=== PATIENT | female | born 1985 | race Asian ===

== ENCOUNTER 2017-10-13 16:03 | Outpatient (CLI) | payer OTHER | END 2017-10-13 16:04 | disposition home or self-care (01) | LOC: LAB.R 16:03 | PROVIDERS: ATTEND Obstetrics & Gynecology | DX: Z11.3 Encounter for screening for infections with a predominantly sexual mode of transmission (principal) | CPT/HCPCS: 87491; 87591 ==

== ENCOUNTER 2017-10-20 12:33 | Outpatient (CLI) | payer OTHER ==
--- NOTE | 2017-10-20 17:36 | Ultrasound Report ---
OB ULTRASOUND: 10/20/2017 CLINICAL INDICATION: Dating, positive test. TECHNIQUE: Real-time scanning was performed with sales representative advertising static images obtained. LAST MENSTRUAL PERIOD: 07/05/2017 Clinical Age: 15 weeks 2 days US Age: 14 weeks 2 days EFW Hadlock: 91 grams EFW% Hadlock: -- Heart Rate: 152 bpm EDC: 04/11/2018 US EDC: 04/18/2018 BPD Hadlock: 14 weeks 5 days; Mean mm 27 HC Hadlock: 14 weeks 4 days; Mean mm 99 AC Hadlock: 14 weeks 1 day; Mean mm 77 FL Hadlock: 14 weeks 0 days; Mean mm 14 Presentation: variable Placental Location: anterior Cervical Length: TA 3.3 cm Amniotic Fluid: subjectively normal. FINDINGS: There is a single viable intrauterine gestation, in variable position. heart rate is 152 BPM. The placenta is anterior. Amniotic fluid volume is subjectively normal. The gestational sac appears unremarkable. By size, the fetus measures 14 weeks 2 days (15 weeks 2 days by LMP). Limited visualized anatomy is unremarkable. No free fluid or adnexal mass is identified. IMPRESSION: SINGLE VIABLE INTRAUTERINE GESTATION, MEASURING 14 WEEKS 2 DAYS BY SIZE. THIS IS IN KEEPING WITH LMP DATING OF 15 WEEKS 2 DAYS. TD: 10/20/2017 15:57 [facility]
== END 2017-10-20 12:34 | disposition home or self-care (01) ==
LOC: DI 12:33
PROVIDERS: ATTEND Obstetrics & Gynecology
DX: Z32.01 Encounter for pregnancy test, result positive (principal)
CPT/HCPCS: 76805

== ENCOUNTER 2017-12-02 07:41 | Outpatient (CLI) | payer OTHER ==
--- NOTE | 2017-12-04 13:14 | Ultrasound Report ---
OB ULTRASOUND: 12/02/2017 CLINICAL INDICATION: anatomy. COMPARISON: 10/20/2017. TECHNIQUE: Real-time scanning was performed with hr representative static images obtained. LAST MENSTRUAL PERIOD: 07/06/2017 Clinical Age: 21 weeks 2 days US Age: 20 weeks 3 days EFW Hadlock: 358 grams EFW% Hadlock: -- Heart Rate: 147 bpm EDC: 04/12/2018 US EDC: 04/18/2018 BPD Hadlock: 20 weeks 3 days; Mean mm 47 HC Hadlock: 20 weeks 1 day; Mean mm 176 AC Hadlock: 21 weeks 0 days; Mean mm 158 FL Hadlock: 20 weeks 0 days; Mean mm 32 Presentation: variable Placental Location: anterior Cervical Length: TA 2.9 cm Amniotic Fluid: MAKEDA 13.60 cm; subjectively normal; MVP 4.6 cm FINDINGS There is a single viable intrauterine gestation, in variable presentation. heart rate is 147 BPM. The placenta is anterior, without evidence of previa. Amniotic fluid volume is subjectively normal, with the deepest pocket of 4.6 cm. By size, the fetus measures 20 weeks 3 days (21 weeks 2 days by stated dating). ANATOMY The following anatomic structures were visualized and appear normal: The intracranial contents, including the ventricles and posterior fossa; the lips and orbits; the spine; the heart, including 4 chamber view and outflow tracts, and diaphragm; the abdominal contents, including the stomach, the bilateral kidneys, and urinary bladder, as well as a normal 3-vessel cord insertion; 4 limbs. No free fluid or adnexal lesion is appreciated. IMPRESSION: SINGLE VIABLE INTRAUTERINE GESTATION, WITH SIZE IN KEEPING WITH STATED DATING. NORMAL ANATOMIC SURVEY. TD: 12/02/2017 10:19 MTDD
== END 2017-12-02 07:42 | disposition home or self-care (01) ==
LOC: DI 07:41
PROVIDERS: ATTEND Obstetrics & Gynecology
DX: Z36.9 Encounter for antenatal screening, unspecified (principal)
CPT/HCPCS: 76811

== ENCOUNTER 2017-12-09 15:15 | Outpatient (CLI) | payer OTHER ==
[2017-12-09 15:42] LABS: BILIRUBIN,URINE NEGATIVE (NEGATIVE); GLUCOSE, URINE (UA) NEGATIVE (NEGATIVE); KETONES,URINE (UA) NEGATIVE (NEGATIVE); LEUKOCYTE ESTERASE, URINE SMALL (NEGATIVE); NITRITE,URINE NEGATIVE (NEGATIVE); OCCULT BLOOD,URINE NEGATIVE (NEGATIVE); PROTEIN,URINE NEGATIVE (NEGATIVE); UROBILINOGEN,URINE 0.2 (NORMAL) E.U./dL (NORMAL)
[2017-12-09 15:55] LABS: BASOPHILS % (AUTO) 0.3 %; EOSINOPHILS # (AUTO) 0.3 10^3/uL (0.0-0.7); EOSINOPHILS % (AUTO) 3.4 %; LYMPHOCYTES # (AUTO) 1.3 10^3/uL (1.5-3.5); LYMPHOCYTES % (AUTO) 13.6 %; MEAN CORPUSCULAR HEMOGLOBIN 30.8 pg (27.0-31.0); MEAN CORPUSCULAR HGB CONC 34.5 g/dL (32.0-36.0); MEAN CORPUSCULAR VOLUME 89.2 fL (81.0-99.0); MEAN PLATELET VOLUME 6.3 fL (7.9-10.8); MONOCYTES # (AUTO) 0.6 10^3/uL (0.0-1.0); MONOCYTES % (AUTO) 6.5 %; NEUTROPHILS # (AUTO) 7.5 10^3/uL (1.5-6.6); NEUTROPHILS % (AUTO) 76.2 %; PLT - PLATELET COUNT 358 10^3/uL (130-450); RED BLOOD COUNT 3.59 10^6/uL (4.20-5.40); RED CELL DISTRIBUTION WIDTH 12.8 % (12.0-15.0); WHITE BLOOD COUNT 9.8 x10^3/uL (4.8-10.8)
[2017-12-09 15:57] LABS: CLARITY,URINE CLEAR (CLEAR)
[2017-12-09 15:58] LABS: AMORPHOUS SEDIMENT,UR Few /LPF; BACTERIA,URINE Few /HPF (None Seen); RBC,URINE None Seen /HPF (0-5); SQUAMOUS EPITHELIAL CELL,UR MANY Squamous (<= Few)
[2017-12-10 12:33] LABS: HIV AG/AB 4TH GEN NON-REACTIVE (NON-REACTIVE)
[2017-12-10 13:53] LABS: HEPATITIS B SURFACE ANTIGEN NON-REACTIVE (NON-REACTIVE)
[2017-12-10 14:01] LABS: HEPATITIS C ANTIBODY NON-REACTIVE (NON-REACTIVE)
== END 2017-12-09 15:16 | disposition home or self-care (01) ==
LOC: LAB 15:15
PROVIDERS: ATTEND Obstetrics & Gynecology
DX: Z36.9 Encounter for antenatal screening, unspecified (principal)
CPT/HCPCS: 36415; 81001; 81599; 85025; 86592; 86762; 86803; 86850; 86900; 86901; 87340; 87389

== ENCOUNTER 2017-12-29 13:04 | Outpatient (CLI) | payer OTHER ==
--- NOTE | 2017-12-29 14:11 | Ultrasound Report ---
Procedure Date: 12/29/2017 Accession Number: [id number] / [id number] Procedure: US - OB F/U or Repeat CPT Code: FULL RESULT: EXAM: OB F/U or Repeat DATE: 12/29/2017 1:39 PM CLINICAL HISTORY: ENCOUNTER FOR OTHER SCREENING,FOLLOW UP. Check cervical length. TECHNIQUE: Real-time scanning was performed with marketing development representative static images obtained. COMPARISON: 12/02/2017 Presentation: Variable Placental Location: Anterior Cervical Length: 3.7 cm Amniotic Fluid: MAKEDA 19.0 cm; MVP 6.1 cm FINDINGS: There is a single viable intrauterine gestation, with heart rate 152 BPM. The placenta is anterior, without evidence of previa. The cervix is closed, and measures 3.7 cm. IMPRESSION: Unremarkable cervix. Single viable intrauterine gestation.
== END 2017-12-29 13:05 | disposition home or self-care (01) ==
LOC: DI 13:04
PROVIDERS: ATTEND Obstetrics & Gynecology
DX: Z36.2 Encounter for other antenatal screening follow-up (principal)
CPT/HCPCS: 76816

== ENCOUNTER 2018-02-09 14:51 | Outpatient (CLI) | payer OTHER | END 2018-02-09 14:52 | disposition home or self-care (01) | LOC: LAB 14:51 | PROVIDERS: ATTEND Obstetrics & Gynecology | DX: Z36.9 Encounter for antenatal screening, unspecified (principal) | CPT/HCPCS: 36415; 82950; 85018; 86850 ==

== ENCOUNTER 2018-03-24 15:27 | Outpatient (CLI) | payer OTHER | END 2018-03-24 15:28 | disposition home or self-care (01) | LOC: LAB.R 15:27 | PROVIDERS: ATTEND Obstetrics & Gynecology | DX: Z36.89 Encounter for other specified antenatal screening (principal) | CPT/HCPCS: 87797 ==

== ENCOUNTER 2018-04-12 15:43 | Outpatient (CLI) | payer OTHER ==
[2018-04-12 15:58] VITALS: BP 130/83
--- NOTE | 2018-04-12 16:14 | PROVIDER PROGRESS NOTE ---
Subjective - Prog Note Date Prog Note Date: 04/12/18 Prog Note Time: 16:15 - Subjective Subjective: Mrs. Nevarez is a 32-year-old primigravida at 39 weeks 1 day gestation who suspects leaking membranes without contractions. She has no fevers chills or UTI symptoms. There are no signs or symptoms of preeclampsia. Objective - Vital Signs/Intake & Output Vital Signs: Vital Signs x48h Temp Pulse Resp BP Pulse Ox 04/12/18 15:56 98.6 F 89 18 130/83 H 99 Exam - Exam Vital Signs: Vital Signs (72 hours) 04/12/18 15:56 Temperature 98.6 F Heart Rate [ 89 Apical] Respiratory 18 Rate Blood Pressure 130/83 H [Left Brachial artery] O2 Saturation 99 General: Alert, Oriented x3, No acute distress HEENT: Mucous membr. moist/pink Abdomen: Soft, No tenderness, Other (Uterus:Vertex presentation, flaccid, no contractions palpable, cervix 1 cm 50% effaced far posterior 0 station) Assessment/Plan - Assessment/Plan Assessment: Patient is probably in the prodrome of labor. There is no physical evidence of leaking membranes. ROM plus inconclusive due to blood on sample. Patient desires no intervention and would like to rest at home. Plan: Patient released to home with instructions. She will return tomorrow for her regular obstetrics check if labor does not ensue in the meantime.
== END 2018-04-12 16:59 | disposition home or self-care (01) ==
LOC: WFO 15:43 → FBP 15:45 → WFO 16:59
PROVIDERS: ATTEND Obstetrics & Gynecology
DX: Z34.03 Encounter for supervision of normal first pregnancy, third trimester (principal)
CPT/HCPCS: 84112; 99213

== ENCOUNTER 2018-04-13 09:32 | Inpatient (IN) | payer OTHER ==
[2018-04-13 11:50] LABS: RUPTURE OF MEMBRANES PLUS POSITIVE (NEGATIVE)
[2018-04-13] MEDS ORDERED: SODIUM CHLORIDE FLUSH 0.9% 10 ML SYRINGE ONE (17:35)
[2018-04-13] MEDS ORDERED: SODIUM CHLORIDE FLUSH 0.9% 10 ML SYRINGE IVP PRN (18:04)
--- NOTE | 2018-04-13 18:09 | PROVIDER PROGRESS NOTE ---
Labor Progress Note - Uterine Monitoring Uterine Monitoring Mode: positive: External toco Contraction Frequency (min/apart): q3 min Contraction Intensity: positive: Moderate to strong Uterine Resting Tone: positive: Soft - Monitoring Monitor Mode: positive: External ultrasound Heart Rate Variability: positive: Moderate (6-25 bmp) Accelerations: positive: Present, 15x15 Decelerations: positive: None Strip Review: positive: Category I - Vaginal Exam Dilation (in cm): 6 Effacement (%): 80% Station: 0 Cervical Position: Midposition - Labor Progress Note Labor Progress Note/Additional Text: ROM Clear Nonfoul
[2018-04-13 18:20] LABS: BASOPHILS # (AUTO) 0.1 10^3/uL (0.0-0.1); BASOPHILS % (AUTO) 0.8 %; EOSINOPHILS # (AUTO) 0.1 10^3/uL (0.0-0.7); EOSINOPHILS % (AUTO) 0.4 %; LYMPHOCYTES # (AUTO) 1.5 10^3/uL (1.5-3.5); LYMPHOCYTES % (AUTO) 10.7 %; MEAN CORPUSCULAR HEMOGLOBIN 30.5 pg (27.0-31.0); MEAN CORPUSCULAR HGB CONC 34.6 g/dL (32.0-36.0); MEAN CORPUSCULAR VOLUME 88.3 fL (81.0-99.0); MEAN PLATELET VOLUME 7.7 fL (7.9-10.8); MONOCYTES # (AUTO) 0.9 10^3/uL (0.0-1.0); NEUTROPHILS # (AUTO) 11.8 10^3/uL (1.5-6.6); NEUTROPHILS % (AUTO) 82.1 %; PLT - PLATELET COUNT 303 10^3/uL (130-450); RED BLOOD COUNT 3.92 10^6/uL (4.20-5.40); RED CELL DISTRIBUTION WIDTH 13.4 % (12.0-15.0); WHITE BLOOD COUNT 14.4 x10^3/uL (4.8-10.8)
--- NOTE | 2018-04-13 18:23 | HISTORY & PHYSICAL EXAMINATION ---
Admit History - Visit Reason Visit Reason: Contractions, Membranes rupture - : 1 Parity: 0 Premature: 0 Ectopic: 0 : 0 Care: positive: Other ([facility]) Risk/History: positive: None Complications This : positive: None Smoking Status: Never smoker - Mother's Labs Mother's Blood Type: positive: A Mother's RH: positive: Positive GBS: positive: Group B Step Negative Rubella Status: positive: Immune - Other Maternal History Other Maternal History: Pt seen last tonight in prodrome of labor. 1 cm, 50%, -1 and posterior. Pt sent home to rest. At 0400 leakage of nonfoul fluid w sm amount of blood. 0800, q 10 min painful contraction progressing to q 3 min mod to strong. ROM+ equivocable. 1700 exam + clear fluid w bloody show. Pelvis w andriod features and borderline. EFW 7lbs Meds/Allgy - Home Medications Home Medications: Ambulatory Orders Medication Instructions Recorded Confirmed Cyclobenzaprine [Flexeril] 10 mg PO TID PRN #20 tablet 02/27/15 HYDROcod/ACETAM 5/325 [[place] 5/325] 1 ea PO Q6H PRN #15 tablet 02/27/15 Ibuprofen [Motrin] 400 mg PO Q6H PRN #30 tablet 02/27/15 - Allergies Allergies/Adverse Reactions: Allergies Allergy/AdvReac Type Severity Reaction Status Date / Time No Known Drug Allergies Allergy Verified 02/27/15 10:17 Physical - Abdominal Exam Vital Signs: Temp Pulse Resp BP Pulse Ox 98.2 F 86 17 135/91 H 99 04/13/18 14:35 04/13/18 14:35 04/13/18 14:35 04/13/18 14:36 04/13/18 14:35 Exam - Exam Vital Signs: Vital Signs (72 hours) 04/13/18 04/13/18 04/13/18 09:54 09:55 12:30 Temperature 98.4 F 98.4 F 98.6 F Heart Rate [ 71 71 74 Monitoring electrodes] Respiratory 16 16 17 Rate Blood Pressure 128/82 H 128/82 H [Left Brachial artery] Blood Pressure 137/78 H [Right Brachial artery] O2 Saturation 100 100 99 04/13/18 04/13/18 14:35 14:36 Temperature 98.2 F Heart Rate [ 86 Monitoring electrodes] Respiratory 17 Rate Blood Pressure [Left Brachial artery] Blood Pressure 129/90 H 135/91 H [Right Brachial artery] O2 Saturation 99 General: Alert, Mild distress HEENT: Atraumatic, EOMI, Mucous membr. moist/pink Lungs: Clear to auscultation, Normal air movement Cardiovascular: Regular rate, Normal S1, Normal S2, No murmurs Abdomen: Normal bowel sounds, No tenderness, No hepatospenomegaly, Other (6 cm, 80%, +ROM 0 Stat q 3 min mod contraction; Cat 1 FHT tracing) Extremities: No clubbing, No edema Skin: No rashes Neurological: Normal speech, Strength at 5/5 X4 ext, Normal tone, Reflexes 2+ Psych/Mental Status: Mental status NL Assessment/Plan - Assessment/Plan Assessment: Term in Labor. Active Phase. Cat 1 tracing
[2018-04-13] MEDS ORDERED: OXYTOCIN/SODIUM CHLORIDE 500 ML IV ONE (18:30)
[2018-04-13] MEDS ORDERED: MINERAL OIL LIGHT 10 ML MC ONE (18:40)
[2018-04-13] MEDS ORDERED: LIDOCAINE 1% 50 ML MDV ONE (18:59)
[2018-04-13] MEDS ORDERED: LACTATED RINGERS 1,000 ML IV SCH ×2 (19:00→21:00)
[2018-04-13] MEDS ORDERED: diphenhydrAMINE 25 MG CAPSULE PO PRN (20:17)
[2018-04-13] MEDS ORDERED: OXYTOCIN/SODIUM CHLORIDE 250 ML IV ONE (20:17)
[2018-04-13] MEDS ORDERED: ONDANSETRON 4 MG/2 ML VIAL IVP PRN (20:17)
[2018-04-13] MEDS ORDERED: HYDROCORTISONE/PRAMOXINE 10 GM PR PRN (20:17)
[2018-04-13] MEDS ORDERED: WITCH HAZEL/GLYCERIN 1 EACH MED..PAD TOP PRN (20:17)
--- NOTE | 2018-04-13 20:23 | DELIVERY NOTE ---
Delivery Note - Labor Labor: positive: Spontaneous - Delivery Method Delivery Method: positive: Spontaneous vaginal delivery - Presentation Presentation: positive: Vertex, Compound (Left arm) - Nuchal Cord Nuchal Cord: positive: Present (X1, somewhat loose) - Anesthetic Anesthetic Type: Anesthetic: positive: Lidocaine - 1% plain Volume: positive: Other (20 cc) - Amniotic Fluid Description Amniotic Fluid Description: positive: Clear - Episiotomy Type Episiotomy Type: positive: None - Laceration Laceration: positive: 2nd degree (Shallow second-degree laceration in the midline without any extension) - Suture Suture Type: positive: Vicryl Suture Size: positive: 2-0 - Delivery Outcome Delivery Outcome: positive: Livebirth - : positive: Placed in direct skin contact with mother, Other (Delayed cord clamping) [place] sex: positive: Female - Cord Cord: positive: 3 vessels - Placenta Placenta: positive: Intact, Spontaneous, Other (Grade 2 placenta) - Estimated Blood Loss Estimated Blood Loss (in cc): 300 - Post Delivery Events Post Delivery Events: positive: No post delivery events - Delivery Comments (Free Text/Narrative) Delivery Comments (Free Text/Narrative): Patient smoothly progressed to the second stage of labor and was noted to be complete around 1915 hrs. At that time she was 10 cm +2 station and turning from ROT to OA. Patient pushed with excellent effort and smoothly brought the head to the perineum. Push & stretch method along with mineral oil was used to facilitate . Head atraumatically crowned and shoulders were delivered without difficulty. was placed on mother's abdomen. Mother baby and father all bonded well. When the cord ceased pulsations, it was doubly clamped and transected. Cord blood sample was taken. Estimated blood loss 300 weight = 7 lbs 3oz Apgars 8/9
[2018-04-14] MEDS: IBUPROFEN 600 MG TABLET PO SCH ×3 (00:09→16:30)
[2018-04-14] MEDS: ACETAMINOPHEN 325 MG TABLET PO PRN ×4 (00:45→16:31)
[2018-04-14] MEDS ORDERED: SODIUM CHLORIDE FLUSH 0.9% 10 ML SYRINGE IVP SCH (01:00)
[2018-04-14 05:52] LABS: BASOPHILS # (AUTO) 0.1 10^3/uL (0.0-0.1); BASOPHILS % (AUTO) 0.4 %; EOSINOPHILS % (AUTO) 0.2 %; HGB - HEMOGLOBIN 9.8 g/dL (12.0-16.0); LYMPHOCYTES # (AUTO) 1.6 10^3/uL (1.5-3.5); LYMPHOCYTES % (AUTO) 10.2 %; MEAN CORPUSCULAR HEMOGLOBIN 31.6 pg (27.0-31.0); MEAN CORPUSCULAR HGB CONC 36.2 g/dL (32.0-36.0); MEAN CORPUSCULAR VOLUME 87.2 fL (81.0-99.0); MEAN PLATELET VOLUME 7.1 fL (7.9-10.8); MONOCYTES % (AUTO) 6.6 %; NEUTROPHILS # (AUTO) 12.6 10^3/uL (1.5-6.6); NEUTROPHILS % (AUTO) 82.6 %; PLT - PLATELET COUNT 245 10^3/uL (130-450); RED BLOOD COUNT 3.09 10^6/uL (4.20-5.40); RED CELL DISTRIBUTION WIDTH 13.3 % (12.0-15.0); WHITE BLOOD COUNT 15.3 x10^3/uL (4.8-10.8)
[2018-04-15] MEDS: IBUPROFEN 600 MG TABLET PO SCH ×2 (03:51→13:47)
--- NOTE | 2018-04-15 12:04 | PROVIDER PROGRESS NOTE ---
Subjective - Prog Note Date Prog Note Date: 04/15/18 Prog Note Time: 12:02 - Subjective Pt reports feeling: Improved Subjective: Patient exhausted. Did not get a lot of sleep. in the chair holding baby Clementina. [facility] reports that she is doing well. Cramping and abdominal pain controlled with ibuprofen and tylenol. Ambulating and urinating without difficulty. Desires to go home. Objective - Vital Signs/Intake & Output Vital Signs: Vital Signs x48h Temp Pulse Resp BP Pulse Ox 04/15/18 08:22 97.7 F 79 15 121/73 100 Intake & Output: Intake & Output 04/12/18 04/13/18 04/14/18 04/15/18 23:59 23:59 23:59 23:59 Output Total 1000 Balance -1000 - Objective General Appearance: positive: No acute distress Eyes Bilateral: positive: Normal inspection (Has ecchymosis of entire face 2ndry to pushing) Abdomen: positive: Non-tender (Firm fundus) Extremities: positive: Non-tender Neurologic/Psychiatric: positive: Oriented x3 - Lab Results Fish Bones: 04/14/18 05:41 Assessment/Plan - Problem List (1) Normal vaginal delivery Impression: 32 yo S/p 04/13/2018, day #2 Normal recovery Routine care Discharge to home today Take OTC Motrin and tylenol for abdominal pain. Rx for vicodin for breakthrough pain. Return to [facility] in 3 weeks for a routine visit Call for worsening fevers, chills, abdominal pain or vaginal bleeding Discharge dictation:[id number] Discharge Plan Disposition: Home, Self Care Condition: Good Diet: Regular Activity Restrictions: Activity as Tolerated Shower Restrictions: No Driving Restrictions: Yes Weight Bearing: Full Weight (Take over the counter motrin 800 mg every 6 hours and tylenol 1000 mg every 8 hours as needed for pain. Rx for vicodin for breakthrough pain. Follow up at [facility] in 3 weeks. Call for worsening fevers, chills, abdominal pain or vaginal bleeding.) No Smoking: If you smoke, Please STOP! Call for help.
[2018-04-15 12:13] VITALS: BP 131/81
[2018-04-15] MEDS: ACETAMINOPHEN 325 MG TABLET PO PRN (13:47)
--- NOTE | 2018-04-15 16:24 | Labor Flowsheet ---
Labor Flowsheet Datetime Report Generated by CPN: 04/15/2018 16:23 Datetime: 04/15/2018 12:05 VITAL SIGNS NBP Sys/Ana Maria/Mean (mmHg): 131 : 81 : 92 Pulse: 90 COMMUNICATION LaborFlag: Labor Datetime: 04/15/2018 08:15 SpO2 (%): 100 Datetime: 04/13/2018 19:14 Stage 2 Comments: 1913 Datetime: 04/13/2018 19:10 UTERINE ACTIVITY Monitor Mode: External Frequency (min): 2 Quality: Strong Duration (sec): 50 Pattern: Normal: <= 5 Contractions in 10 Minutes Resting Tone (Palpate): Relaxed ASSESSMENT A Monitor Mode: External US FHR Baseline Rate : 125 Variability: Moderate 6-25 bpm Accelerations: 15X15 Decelerations: None Category: Category II PATIENT CARE Oxygen Method: Room Air Pushing Position: Pushing with Contractions Datetime: 04/13/2018 18:59 Comments: FHT between ctx 130, FHT during ctx 100s Datetime: 04/13/2018 18:45 VAGINAL EXAM Dilatation (cm): 10.0 Effacement (%): 100 Station: 3 Exam by: dr muro Vaginal Bleeding: Scant Cervix, Consistency: Soft Cervix, Position: Anterior STAGE 2 Pushing: Urge to Push Pushing Progress: Descent with Pushing Datetime: 04/13/2018 18:29 FHR Baseline Changes: No Baseline Change
--- NOTE | 2018-04-16 03:12 | DISCHARGE SUMMARY ---
Physician: Renée Munguia DO FACDEION DATE OF ADMISSION: 04/13/2018 DATE OF DISCHARGE: 04/15/2018 DIAGNOSES ON ADMISSION 1. A 32-year-old G1, P0 with a 39 and 2/7 week intrauterine . 2. Active labor. DIAGNOSES ON DISCHARGE 1. A 32-year-old G1, P1-0-0-1, status post spontaneous vaginal delivery on 04/13/2018. 2. Normal recovery. BRIEF HISTORY: This is a patient of [facility] who presented on 04/13/2018 with complaints of loss of fluid. Workup was equivocal for a rupture of membranes. Patient was monitored and found to progress to 6 cm dilation, with 80% effacement and 0 station. She had a spontaneous vaginal delivery of a viable female infant named Clementina. Apgars were 8 and 9 at one and five minutes respectively. Patient sustained a second-degree laceration that was repaired with 2-0 Vicryl. The baby weighed 7 pounds 3 ounces. There were no complications. course has been unremarkable. She is ambulating and tolerating a regular diet. She is urinating without difficulty. Her pain is controlled with Tylenol and Motrin. Patient verbalizes her desire to go home today. I will discharge patient home with instructions to take [id number] ibuprofen and Tylenol. A prescription for Vicodin will be made available to her, should she have any significant breakthrough pain. Patient to see us at [facility] in 3 weeks for a routine visit. She is to call should she have any worsening fevers, chills, abdominal pain or vaginal bleeding. TD: 04/15/2018 12:19 [place]
== END 2018-04-15 16:00 | disposition home or self-care (01) | DRG 807 ==
LOC: WFO 09:32 → FBP 09:33 → WFO 18:03 → FBP 18:04
PROVIDERS: ADMIT Obstetrics & Gynecology; ATTEND Obstetrics & Gynecology
PROC: 10E0XZZ Delivery of Products of Conception, External Approach (ICD-10-PCS; principal; 2018-04-13)
PROC: 0KQM0ZZ Repair Perineum Muscle, Open Approach (ICD-10-PCS; 2018-04-13)
DX: O32.6XX0 Maternal care for compound presentation, not applicable or unspecified (principal); Z37.0 Single live birth; O69.81X0 Labor and delivery complicated by cord around neck, without compression, not applicable or unspecified; O70.1 Second degree perineal laceration during delivery; Z3A.39 39 weeks gestation of pregnancy
CPT/HCPCS: 36415; 84112; 85025; 99213

== ENCOUNTER 2021-11-10 22:28 | Inpatient (IN) | payer OTHER ==
[2021-11-10] MEDS ORDERED: OXYTOCIN 10 UNIT/ML VIAL IM PRN (23:19)
[2021-11-10] MEDS ORDERED: METHYLERGONOVINE 0.2 MG/ML VIAL IM PRN (23:19)
[2021-11-10] MEDS ORDERED: CARBOPROST TROMETHAMINE 250 MCG/ML AMP IM PRN (23:19)
[2021-11-10] MEDS ORDERED: hydrALAZINE INJ 20 MG/ML VIAL IVP PRN ×2 (23:19)
[2021-11-10] MEDS ORDERED: fentaNYL 100 MCG/2 ML VIAL IVP PRN (23:19)
[2021-11-10] MEDS ORDERED: OXYTOCIN/SODIUM CHLORIDE 500 ML IV PRN (23:19)
[2021-11-10] MEDS ORDERED: LIDOCAINE-MPF 1% 30 ML VIAL ID PRN (23:19)
[2021-11-10] MEDS ORDERED: SODIUM CHLORIDE FLUSH 0.9% 10 ML SYRINGE IVP PRN (23:19)
[2021-11-10] MEDS ORDERED: NIFEdipine 10 MG CAPSULE PO PRN (23:19)
[2021-11-10] MEDS ORDERED: TRANEXAMIC ACID IN NACL 1,000 MG/100 ML BAG IV PRN (23:19)
[2021-11-10] MEDS ORDERED: miSOPROStoL 200 MCG TABLET BC PRN (23:19)
[2021-11-10] MEDS ORDERED: TERBUTALINE 1 MG/ML VIAL SUBQ PRN (23:19)
[2021-11-10] MEDS ORDERED: miSOPROStoL 200 MCG TABLET PR PRN (23:19)
[2021-11-10] MEDS ORDERED: LABETALOL 20 MG/4 ML SYRINGE IVP PRN ×3 (23:19)
--- NOTE | 2021-11-10 23:23 | HISTORY & PHYSICAL EXAMINATION ---
Admit History - Visit Reason Visit Reason: Contractions - : 3 Parity: 2 Care: positive: Other ([facility]) Risk/History: positive: None (denies) Complications This : positive: None Smoking Status: Never smoker - Mother's Labs GBS: positive: Group B Step Negative (per patient report) - Other Maternal History Other Maternal History: Patient presents with complaints of contractions. She has noted painful regular contractions. She denies leakage of fluid or vaginal bleeding. She reports receiving care with [facility]. She denies any complications with this or her previous 2 pregnancies. She reports 2 previous vaginal deliveries. She is reportedly 38 weeks gestation. Records have been requested. PMH - Denies PSH- Denies Meds/Allgy - Home Medications Home Medications: Ambulatory Orders Medication Instructions Recorded Confirmed Ferrous Sulfate 3,256 mg PO DAILY 04/13/18 04/13/18 - Allergies Allergies/Adverse Reactions: Allergies Allergy/AdvReac Type Severity Reaction Status Date / Time No Known Drug Allergies Allergy Verified 02/27/15 10:17 Review of Systems - Constitutional Constitutional: denies: Fever, Chills Physical - Abdominal Exam Vital Signs: Temp Pulse Resp BP Pulse Ox 98.6 F 11/10/21 23:56 - Monitoring Strip Review: positive: Category I - Presentation Presentation: positive: Vertex - Vaginal Exam Membranes: positive: Membranes intact Dilation (in cm): 9 Station: positive: 2 Plan for Labor - Plan For Labor Plan for Labor: 36-year-old who presents with complaints of contractions. Patient is reportedly 38 weeks and receives care at [facility]. She was found to be in active labor. Laborpatient found to be 9 cm on presentation with rapid progression to complete cervical dilation. Delivery shortly after presentation. Records requested.
[2021-11-10] MEDS ORDERED: miSOPROStoL 200 MCG TABLET ONE (23:28)
[2021-11-10] MEDS ORDERED: OXYTOCIN/SODIUM CHLORIDE 500 ML IV ONE (23:28)
[2021-11-10] MEDS ORDERED: TRANEXAMIC ACID IN NACL 1,000 MG/100 ML BAG IV ONE (23:29)
[2021-11-10] MEDS ORDERED: CARBOPROST TROMETHAMINE 250 MCG/ML AMP IM ONE (23:29)
[2021-11-10] MEDS ORDERED: METHYLERGONOVINE 0.2 MG/ML VIAL ONE (23:29)
[2021-11-10] MEDS ORDERED: LACTATED RINGERS 1,000 ML IV SCH (23:45)
[2021-11-10 23:58] LABS: BASOPHILS % (AUTO) 0.2 %; EOSINOPHILS # (AUTO) 0.1 10^3/uL (0.0-0.7); EOSINOPHILS % (AUTO) 0.6 %; HCT - HEMATOCRIT 34.7 % (37.0-47.0); HGB - HEMOGLOBIN 11.9 g/dL (12.0-16.0); LYMPHOCYTES # (AUTO) 1.7 10^3/uL (1.5-3.5); LYMPHOCYTES % (AUTO) 13.4 %; MEAN CORPUSCULAR HGB CONC 34.3 g/dL (32.0-36.0); MEAN CORPUSCULAR VOLUME 87.4 fL (81.0-99.0); MEAN PLATELET VOLUME 9.2 fL (7.9-10.8); MONOCYTES # (AUTO) 0.9 10^3/uL (0.0-1.0); MONOCYTES % (AUTO) 7.2 %; NEUTROPHILS # (AUTO) 9.7 10^3/uL (1.5-6.6); NEUTROPHILS % (AUTO) 76.6 %; PLT - PLATELET COUNT 334 10^3/uL (130-450); RED BLOOD COUNT 3.97 10^6/uL (4.20-5.40); RED CELL DISTRIBUTION WIDTH 13.2 % (12.0-15.0); WHITE BLOOD COUNT 12.7 x10^3/uL (4.8-10.8)
[2021-11-11] MEDS ORDERED: HYDROcod/ACETAM 5/325 MG TABLET PO PRN (00:17)
--- NOTE | 2021-11-11 00:27 | DELIVERY NOTE ---
Delivery Note - Labor Labor: positive: Spontaneous - Delivery Method Delivery Method: positive: Spontaneous vaginal delivery - Presentation Presentation: positive: Vertex - Nuchal Cord Nuchal Cord: positive: None - Anesthetic Anesthetic Type: - Amniotic Fluid Description Amniotic Fluid Description: positive: Clear - Episiotomy Type Episiotomy Type: positive: None - Laceration Laceration: positive: Other (superficial perineal abrasion) - Delivery Outcome Delivery Outcome: positive: Livebirth - [place] sex: positive: Male - Cord Cord: positive: 3 vessels - Placenta Placenta: positive: Intact - Estimated Blood Loss Estimated Blood Loss (in cc): 200 - Post Delivery Events Post Delivery Events: positive: No post delivery events - Delivery Comments (Free Text/Narrative) Delivery Comments (Free Text/Narrative): The patient progressed to complete cervical dilation. She was placed in dorsal lithotomy position. The head was delivered with maternal pushing. The anterior shoulder delivered without difficulty followed subsequently by the posterior shoulder and the remainder of the baby. The baby was vigorous at delivery. Cord clamping was done of late for 1 minute. The cord was doubly clamped and cut and the baby placed on the maternal chest. Cord blood was obtained. The placenta was delivered with fundal massage. The fundus was noted to be firm. Evaluation of the perineum revealed only a superficial abrasion which was hemostatic. The patient remained in stable condition.
[2021-11-11] MEDS ORDERED: LACTATED RINGERS 1,000 ML IV SCH (01:00)
[2021-11-11] MEDS: IBUPROFEN 800 MG TABLET PO SCH ×3 (02:37→19:30)
[2021-11-11 06:06] LABS: BASOPHILS % (AUTO) 0.3 %; EOSINOPHILS # (AUTO) 0.1 10^3/uL (0.0-0.7); EOSINOPHILS % (AUTO) 0.6 %; HCT - HEMATOCRIT 30.7 % (37.0-47.0); HGB - HEMOGLOBIN 10.7 g/dL (12.0-16.0); LYMPHOCYTES # (AUTO) 1.6 10^3/uL (1.5-3.5); LYMPHOCYTES % (AUTO) 10.7 %; MEAN CORPUSCULAR HEMOGLOBIN 30.3 pg (27.0-31.0); MEAN CORPUSCULAR HGB CONC 34.9 g/dL (32.0-36.0); MEAN PLATELET VOLUME 8.9 fL (7.9-10.8); MONOCYTES # (AUTO) 1.1 10^3/uL (0.0-1.0); MONOCYTES % (AUTO) 7.1 %; NEUTROPHILS # (AUTO) 11.9 10^3/uL (1.5-6.6); NEUTROPHILS % (AUTO) 79.5 %; PLT - PLATELET COUNT 292 10^3/uL (130-450); RED BLOOD COUNT 3.53 10^6/uL (4.20-5.40); RED CELL DISTRIBUTION WIDTH 13.2 % (12.0-15.0)
--- NOTE | 2021-11-11 11:50 | PROVIDER PROGRESS NOTE ---
Subjective - Prog Note Date Prog Note Date: 11/11/21 Prog Note Time: 11:48 - Subjective Pt reports feeling: Improved (Patient has no complaints. Her pain is improved with pain medications. She is she denies heavy bleeding.) Current Medications - Current Medications Current Medications: Active Medications Generic Name Dose Route Start Last Admin Trade Name Kt PRN Reason Stop Dose Admin Hydrocodone Bitart/Acetaminophen 1 tab 11/11/21 00:17 11/11/21 02:57 Hydrocod/Acetam 5/325 Mg Tablet PO 1 tab Q4HR PRN Administration PAIN Carboprost Tromethamine 250 mcg 11/10/21 23:19 Carboprost Tromethamine 250 Mcg/Ml Amp IM .ONCE PRN Hemorrhage Lactated Ringer's 1,000 mls @ 125 mls/hr 11/10/21 23:45 11/11/21 03:00 Lr IV Infused .Q8H LAURA Infusion Lactated Ringer's 1,000 mls @ 100 mls/hr 11/11/21 01:00 11/11/21 06:32 Lr IV Not Given .Q10H LAURA Ibuprofen 800 mg 11/11/21 01:00 11/11/21 11:19 Ibuprofen 800 Mg Tablet PO 800 mg Q8HR LAURA Administration Lidocaine HCl 30 ml 11/10/21 23:19 Lidocaine-Mpf 1% 30 Ml Vial ID 11/11/21 23:19 ONCE PRN PERINEAL REPAIR Methylergonovine Maleate 0.2 mg 11/10/21 23:19 Methylergonovine 0.2 Mg/Ml Vial IM .ONCE PRN Hemorrhage Misoprostol 600 mcg 11/10/21 23:19 Misoprostol 200 Mcg Tablet BC .ONCE PRN Hemorrhage Misoprostol 800 mcg 11/10/21 23:19 Misoprostol 200 Mcg Tablet HI .ONCE PRN Hemorrhage Nifedipine 10 - 20 mg 11/10/21 23:19 Nifedipine 10 Mg Capsule PO Q20M PRN SBP> or= 160 OR DBP> or= 110 Protocol Oxytocin 10 unit 11/10/21 23:19 Oxytocin 10 Unit/Ml Vial IM .ONCE PRN Step One if no IV access. Ferrous Sulfate 3,256 mg PO DAILY 04/13/18 Objective - Vital Signs/Intake & Output Reviewed Vital Signs: Yes Vital Signs: Vital Signs x48h Temp Pulse Resp BP Pulse Ox 11/11/21 09:33 98.1 F 77 16 120/76 100 11/11/21 05:06 78 14 112/64 99 Intake & Output: Intake & Output 11/08/21 11/09/21 11/10/21 11/11/21 23:59 23:59 23:59 23:59 Intake Total 1500 Output Total 600 Balance 900 - Objective General Appearance: positive: No acute distress Respiratory: positive: No respiratory distress Abdomen: positive: Non-tender, No distention. negative: Guarding - Lab Results Fish Bones: 11/11/21 06:00 Other Labs: Lab Results x24hrs 11/11/21 11/10/21 11/10/21 Range/Units 06:00 23:24 23:24 WBC 15.0 H 12.7 H (4.8-10.8) x10^3/uL RBC 3.53 L 3.97 L (4.20-5.40) 10^6/uL Hgb 10.7 L 11.9 L (12.0-16.0) g/dL Hct 30.7 L 34.7 L (37.0-47.0) % MCV 87.0 87.4 (81.0-99.0) fL MCH 30.3 30.0 (27.0-31.0) pg MCHC 34.9 34.3 (32.0-36.0) g/dL RDW 13.2 13.2 (12.0-15.0) % Plt Count 292 334 (130-450) 10^3/uL MPV 8.9 9.2 (7.9-10.8) fL Neut # (Auto) 11.9 H 9.7 H (1.5-6.6) 10^3/uL Lymph # (Auto) 1.6 1.7 (1.5-3.5) 10^3/uL [place] # (Auto) 1.1 H 0.9 (0.0-1.0) 10^3/uL Eos # (Auto) 0.1 0.1 (0.0-0.7) 10^3/uL Baso # (Auto) 0.0 0.0 (0.0-0.1) 10^3/uL Absolute Nucleated RBC 0.00 0.00 x10^3/uL Nucleated RBC % 0.0 0.0 /100WBC Blood Type A POSITIVE Antibody Screen NEGATIVE Assessment/Plan - Problem List (1) Normal vaginal delivery Impression: 36-year-old post day 1 status post spontaneous vaginal delivery. Patient presented in active labor and delivered shortly after presentation. # statepatient meeting milestones. Mild leukocytosis noted . Afebrile. Vital signs stable. Awaiting outside hospital records. Anticipate discharge tomorrow.
[2021-11-12] MEDS: IBUPROFEN 800 MG TABLET PO SCH ×3 (01:17→09:44)
--- NOTE | 2021-11-12 08:21 | Discharge Plan ---
Discharge Plan Problem Reviewed?: Yes Disposition: Home, Self Care Condition: Stable Prescriptions: HYDROcod/ACETAM 5/325 [[place] 5/325] 1 tab PO Q4HR PRN #10 tablet PRN Reason: Pain Ibuprofen [Motrin] 800 mg PO Q8HR PRN #30 tablet PRN Reason: Abdominal Pain Diet: Regular Activity Restrictions: Additional Comments (Nothing per vagina for 4 weeks) Shower Restrictions: No Driving Restrictions: Yes (while taking narcotics ) Instruction Topics: Vaginal After No Smoking: If you smoke, Please STOP! Call for help. Follow-up with: Maik Kraft MD [Provider Admit Priv/Credential] - 2 Weeks
--- NOTE | 2021-11-12 08:27 | DISCHARGE SUMMARY ---
Discharge Summary Admit Date: 11/12/21 Discharge Date: 11/12/21 Condition at Discharge: Stable Discharge Disposition: 01 Home, Self Care - DIAGNOSES Admission Diagnoses: Term labor Discharge Diagnoses with Status of Each Condition: Status post spontaneous vaginal delivery - HOSPITAL COURSE Hospital Course: 36-year-old G3, P3 who presented at term in active labor. She had an uncomplicated spontaneous vaginal delivery. She met milestones and was stable for discharge on day 2. The patient was given instructions for follow-up with her OB or local OB in 2 to 3 weeks. - ALLERGIES Allergies/Adverse Reactions: Allergies Allergy/AdvReac Type Severity Reaction Status Date / Time No Known Drug Allergies Allergy Verified 02/27/15 10:17 - MEDICATIONS Home Medications: Ambulatory Orders Medication Instructions Recorded Confirmed Ferrous Sulfate 3,256 mg PO DAILY 04/13/18 04/13/18 HYDROcod/ACETAM 5/325 [[place] 5/325] 1 tab PO Q4HR PRN #10 tablet 11/12/21 Ibuprofen [Motrin] 800 mg PO Q8HR PRN #30 tablet 11/12/21 - PHYSICAL EXAM AT DISCHARGE General Appearance: positive: No acute distress, Alert Respiratory: positive: No respiratory distress Abdomen: positive: Non-tender, No distention, Other (fundus firm ) - LABS Result Diagrams: 11/11/21 06:00
[2021-11-12 10:06] VITALS: BP 125/81
--- NOTE | 2021-11-12 12:01 | Labor Flowsheet ---
Labor Flowsheet Datetime Report Generated by CPN: 11/12/2021 12:01 Datetime: 11/12/2021 09:45 VITAL SIGNS NBP Sys/Ana Maria/Mean (mmHg): 125 : 81 : 90 Pulse: 85 SpO2 (%): 100 Datetime: 11/11/2021 03:00 PAIN Pain Scale: 8 Pain Presence: Intermittent Pain Type: Cramping Pain Location: Abdomen Pain Goal: 8 Pain Relief Measures: Pain Medication Given; Comfort Measures Datetime: 11/10/2021 23:40 COMMUNICATION LaborFlag: Labor Datetime: 11/10/2021 23:34 UTERINE ACTIVITY Monitor Mode: External Frequency (min): 1.5-3 Quality: Strong Duration (sec): 60-80 Pattern: Normal: <= 5 Contractions in 10 Minutes Resting Tone (Palpate): Relaxed ASSESSMENT A Monitor Mode: External US FHR Baseline Rate : 145 Variability: Moderate 6-25 bpm Accelerations: 15X15 Decelerations: None Category: Category I Datetime: 11/10/2021 23:30 Patient Care Comments: pushing Datetime: 11/10/2021 23:29 Membrane Status: Ruptured Membranes Rupture Method: Spontaneous Amniotic Fluid Color: Clear Amniotic Fluid Amount: Moderate Amniotic Fluid Odor: Normal Pool: Positive Datetime: 11/10/2021 23:24 PATIENT CARE IV/Blood Work: IV Started; Labs Drawn with IV Start; IV Bag Number @ 1 Datetime: 11/10/2021 22:59 VAGINAL EXAM Dilatation (cm): 10.0 Effacement (%): 95 Station: 0 Datetime: 11/10/2021 22:38 Stage of : OB Triage
== END 2021-11-12 11:59 | disposition home or self-care (01) | DRG 807 ==
LOC: FBP 22:28
PROVIDERS: ADMIT Obstetrics & Gynecology; ATTEND Obstetrics & Gynecology
PROC: 10E0XZZ Delivery of Products of Conception, External Approach (ICD-10-PCS; principal; 2021-11-10)
DX: O80 Encounter for full-term uncomplicated delivery (principal); Z37.0 Single live birth; Z3A.38 38 weeks gestation of pregnancy
CPT/HCPCS: 36415; 85025; 86850; 86900; 86901; A9270; J2210; J7120; 99215